=== PATIENT | male | born 1940 | race Caucasian/White ===

== ENCOUNTER 2021-01-20 12:50 | Inpatient (IN) | payer MEDICARE ==
[~2021-01-20] VITALS: Ht 177.8 cm; Wt 53.6 kg
[2021-01-20 15:03] LABS: HEMOGLOBIN 8.6 gm/dl (14.0-17.5); RED BLOOD COUNT 3.72 M/UL (4.20-5.50); WHITE BLOOD COUNT 7.5 K/UL (4.5-11.0)
[2021-01-20] MEDS ORDERED: LEVOTHYROXINE100 MCG PO (17:03)
[2021-01-20] MEDS ORDERED: ALBUTEROL2.5 MG/3 M INH (17:03)
[2021-01-20] MEDS ORDERED: FERROUS SULFAT325 MG PO (17:04)
[2021-01-20] MEDS ORDERED: ASPIRIN81 MG PO (17:04)
[2021-01-20] MEDS ORDERED: MULTIVITAMIN1 EACH PO (17:05)
[2021-01-21 03:37] LABS: HEMOGLOBIN 8.7 gm/dl (14.0-17.5); RED BLOOD COUNT 3.76 M/UL (4.20-5.50); WHITE BLOOD COUNT 7.5 K/UL (4.5-11.0)
[2021-01-22 02:54] LABS: HEMOGLOBIN 8.1 gm/dl (14.0-17.5); RED BLOOD COUNT 3.52 M/UL (4.20-5.50)
[2021-01-22 03:04] LABS: WHITE BLOOD COUNT 14.7 K/UL (4.5-11.0)
[2021-01-23 02:38] LABS: HEMOGLOBIN 7.6 gm/dl (14.0-17.5); RED BLOOD COUNT 3.3 M/UL (4.20-5.50)
[2021-01-23 02:43] LABS: WHITE BLOOD COUNT 9.4 K/UL (4.5-11.0)
[2021-01-24 04:10] LABS: HEMOGLOBIN 7.6 gm/dl (14.0-17.5); RED BLOOD COUNT 3.3 M/UL (4.20-5.50)
[2021-01-24 04:14] LABS: WHITE BLOOD COUNT 6.9 K/UL (4.5-11.0)
[2021-01-24] MEDS ORDERED: LEVOFLOXACIN750 MG PO (09:09)
[2021-01-24] MEDS ORDERED: FERROUS SULFAT325 MG PO (09:09)
--- NOTE | 2021-01-24 13:43 | NUR ---
PT O2 SAT ON ROOM AIR = 76% - 02 @ 3L APPLIED -
== END 2021-01-24 15:23 | disposition home health service (06) | DRG 871 ==
LOC: ER1 12:50 → CDU 16:14 → PROG CARE 16:14
PROVIDERS: Emergency Medicine; Internal Medicine; ADMIT Internal Medicine
PROC: 5A0945A Assistance with Respiratory Ventilation, 24-96 Consecutive Hours, High Flow/Velocity Cannula (ICD-10-PCS; principal; 2021-01-20)
DX: A41.89 Other specified sepsis (principal); J96.21 Acute and chronic respiratory failure with hypoxia; J96.22 Acute and chronic respiratory failure with hypercapnia; J69.0 Pneumonitis due to inhalation of food and vomit; E43 Unspecified severe protein-calorie malnutrition; G93.41 Metabolic encephalopathy; N30.00 Acute cystitis without hematuria; N17.9 Acute kidney failure, unspecified; Z68.1 Body mass index [BMI] 19.9 or less, adult; M54.50 Low back pain, unspecified; D50.9 Iron deficiency anemia, unspecified; L89.216 Pressure-induced deep tissue damage of right hip; G89.29 Other chronic pain; E03.9 Hypothyroidism, unspecified; M40.294 Other kyphosis, thoracic region; D53.9 Nutritional anemia, unspecified; I73.9 Peripheral vascular disease, unspecified; Y84.6 Urinary catheterization as the cause of abnormal reaction of the patient, or of later complication, without mention of misadventure at the time of the procedure; I71.4 Abdominal aortic aneurysm, without rupture; E87.6 Hypokalemia; M06.9 Rheumatoid arthritis, unspecified; Z87.442 Personal history of urinary calculi; Z79.82 Long term (current) use of aspirin; Z79.899 Other long term (current) drug therapy; Z86.16 Personal history of COVID-19
CPT/HCPCS: ECHO; 36415; 36600; 51702; 71045; 71046; 74230; 80048; 80053; 80202; 81001; 82550; 82553; 82607; 82803; 83036; 83540; 83550; 83605; 83735; 83874; 83880; 84100; 84484; 85025; 85027; 85379; 85652; 86140; 87040; 87077; 87086; 87186; 92526; 92610; 92611-GN; 93005; 93306; 93970; 94640; 94664; 94760; 96374; 96375; 96376; 97161; 97166; 99285; J0295; J0696; J1650; J2185; J2270; J2405; J3370; J3475; J3480; J7050; Q0177; U0002